=== PATIENT | male | born 1940 | race Caucasian/White ===

== ENCOUNTER 2018-10-13 11:54 | Emergency (ER) | payer MEDICARE, OTHER ==
[2018-10-13] MEDS ORDERED: PANTOPRAZOLE SO40 MG PO (12:53)
[2018-10-13] MEDS ORDERED: METHIMAZOLE5 MG PO (12:53)
[2018-10-13] MEDS ORDERED: LISINOPRIL20 MG PO (12:54)
[2018-10-13] MEDS ORDERED: PRAVACHOL40 MG PO (12:54)
[2018-10-13] MEDS ORDERED: METOPROLOL SUCC25 MG PO (12:54)
[2018-10-13] MEDS ORDERED: ELIQUIS5 MG PO (12:54)
--- NOTE | 2018-10-13 14:15 | NUR ---
ED STAFF REQUESTED MY ASSISTANCE ON AN ER TEAM CODE. PT WAS BROUGHT IN FROM [facility] [facility]. PT'S NITHYA WAS WITH PT, SHE HAD JUST CALLED HER SON WHO WAS ON HIS WAY HERE FROM [place].PT HAD JUST BEEN TAKEN TO CT, AND I THEN STAYED WITH NITHYA, GAVE DIRECTIONS TO IDALIA OGLESBY IN ROUTE. NITHYA WAS ABLE TO GIVE MED BACKGROUND TO STAFF AND DR ROGERS. IDALIA OGLESBY ARRIVED AND GAVE HIM THE UPDATED INFO, AND TOOK HIM TO PT'S RM 6 IN ED. THE OTHER SON SABINA AND HIS MARYANN ALSO ARRIVED AND I BRIEFED THEM WELL BEFORE TAKING THEM TO PT RM. DANNA TOWNSEND WAS IN RM MONITORING PT. CARY WAS ABLE TO ANSWER ALL QUESTIONS AND FAMILY WAS INFORMED THAT PT WILL BE [facility] TO [facility]. FAMILY THEN BEGAN TO MAKE DECISIONS REGARDING GETING PT'S CAR FROM [employer]. GAVE COMFORT AND BLESSING TO FAMILY. THEY WERE VERY GRACIOUS, WILL FOLLOW NEEDED.
--- NOTE | 2018-10-13 19:39 | EKG ---
[facility] [address] [place] [address] Signed Sinus tachycardia Possible Left atrial enlargement Septal infarct , age undetermined Abnormal ECG Confirmed by MANPREET CLARK MD ([id number]) on 10/13/2018 7:39:34 PM Electronically Signed By: MANPREET CLARK MD 10/13/18 1939 PATIENT NAME: JULIANAJULIO Salina Electrocardiogram DATE OF : 36 PHYSICIAN: MANPREET CLARK MD REPORT #: [id number] REPORT IS CONFIDENTIAL AND NOT TO BE RELEASED WITHOUT AUTHORIZATION
== END 2018-10-13 15:31 | disposition short-term general hospital (02) ==
LOC: ED 11:54
DX: R56.9 Unspecified convulsions (principal); J32.9 Chronic sinusitis, unspecified; Z88.8 Allergy status to other drugs, medicaments and biological substances; Z79.899 Other long term (current) drug therapy
CPT/HCPCS: 31500; 36600; 51702; 70450; 71045; 80053; 81001; 82803; 84484; 85025; 85610; 85730; 93005; 93010; 94002; 94799; 99285-25; G0480; J1953; J2060; J2250; J2704; J3010; J7030; J7060